=== PATIENT | male | born 2000 | race Caucasian/White ===

== ENCOUNTER 2021-04-04 21:27 | Emergency (ER) | payer OTHER, MEDICAID, SELFPAY ==
[2021-04-04 21:27] VITALS: BP 107/64; PULSE 77; RESP 15; TEMP 36.6; O2SAT 95; BMI 20.5
--- NOTE | 2021-04-04 21:56 | EDS_ITS ---
HPI History of Present Illness Chief Complaint: Male Pain/Injury Informant: patient Pain Onset: Month(s) (2-3) Context: Gradual Onset Timing: Intermittent and Lasts (10 min or so) Current Severity: Mild Maximum Severity: Severe Worsened by: nothing in particular Relieved by: nothing Penile Discharge Genital Discharge Amount: None Related History Sexually: Active and Single Partner (x 2 yrs) Unprotected Sex: Yes STD: No Narrative Narrative: Patient has been having episodic discomfort in his right testicle for the past couple months along with right upper scrotal swelling. Similar episode tonight without obvious trigger, a little worse than before. Radiates up into his groin/right lower quadrant area. Occasional nausea no vomiting. No fevers or chills. No urinary symptoms. No hematuria. No urethral discharge. No known history of STDs or suspicion for 1. Patient denies any injury that he knows of. Recent Illness/Hospitalization: No PFSH PFSH no medical history Home Medications doxycycline monohydrate 100 mg PO BID #14 capsule 04/04/21 [Rx Last Taken Unknown] Allergy/AdvReac Type Severity Reaction Status Date / Time No Known Allergies Allergy Verified 04/04/21 21:29 ROS ROS ED Constitutional Constitutional ED: Denies chills or fever(s) Eyes Eyes: Denies change in vision or diplopia ENT ENT ED: Denies rhinorrhea or sore throat Cardiovascular Cardiovascular: Denies chest pain or palpitations Respiratory/Chest Respiratory/Chest: Denies cough or dyspnea Gastrointestinal Gastrointestinal: Reports nausea; Denies abdominal pain, diarrhea or vomiting Genitourinary Genitourinary ED: Reports scrotal pain; Denies dysuria, hematuria or testicular swelling Musculoskeletal Musculoskeletal: Denies back pain or neck pain Integumentary Denies abscess or rash Neurologic Neurologic: Denies headache(s), paresthesias or weakness Psychiatric Psychiatric: Denies anxiety or suicidal thoughts EXAM Physical Exam Const Vital Signs: 04/04/21 21:27 Temperature 97.9 F Temperature Source Temporal Pulse Rate 77 Respiratory Rate 15 Blood Pressure 107/64 Blood Pressure Mean 78 Pulse Ox 95 Oxygen Delivery Method Room Air Positive well nourished and well developed General Appearance ED: well developed and NAD HEENT Reports moist mucous membranes normocephalic and atraumatic Eyes PERRL and EOMs intact bilaterally Neck full ROM and supple Resp normal respiratory effort GI non-tender and non-distended Auscultation: normoactive bowel sounds Palpation: soft Penis: normal penis and circumcised Meatus: meatus normal Scrotum: testes descended bilaterally and cremasteric reflex present Testes: testicular lie normal and other No erythema or other skin abnormalities in the scrotum. No inguinal lymphadenopathy. No hernias. Examined while standing. ; Negative for enlarged testicle(s), testicular swelling, testicular tenderness, blue dot sign or high-riding testicle Epididymis: Right: Tender (mildly. no other palpable abn, mass. no bag of worms palpable.) Back/Spine no CVA tenderness General Back: other FROM Extremity normal to inspection General Extremety ED: Negative for edema, pulses abnormal or tenderness General Extremity: Negative for edema or pulses abnormal Neuro oriented x3, CN's II-XII intact bilaterally and no sensory deficits noted Sensorium / Orientation: awake and alert Motor Exam: strength 5/5 throughout Skin no rashes or lesions noted and no wounds MDM MDM MDM Narrative Medical decision making narrative: Based on exam most likely diagnosis is epididymitis. Patient states he really does not want to undergo testing right now if possible, but he is amenable to providing a urine specimen for GC and chlamydia. We will place him on a week of doxycycline, and if it returns po sitive for gonorrhea he should return, and if he does not get better with antibiotics he is to follow-up or return. He is comfortable with that plan and prefers to treat empirically like this. Discharge Plan Triage Chief Complaint: Male Pain/Injury ED Provider: Obed Dudley Dx/Rx/DC Orders Clinical Impression: Epididymitis, right Instructions: ED Epididymitis Prescriptions: New doxycycline monohydrate 100 MG capsule 100 mg PO BID Qty: 14 RF: 0 Primary Care Provider: Javier Parisi Referrals: Javier Parisi MD [Primary Care Provider] - 1 Week if not improving Disposition Disposition: Home, Self Care
[2021-04-04 22:25] VITALS: RESP 18
[2021-04-07 03:06] LABS: Chlamydia By Nucleic Acid AMP Negative (Negative)
[2021-04-07 07:20] LABS: Gonococcus By Nucleic Acid AMP Negative (Negative)
== END 2021-04-04 22:29 | disposition home or self-care (01) ==
LOC: ED 22:07
PROVIDERS: Emergency Provider Emergency Medicine; PCP Pediatrics
DX: N45.1 Epididymitis (principal)
CPT/HCPCS: 87491; 87591; 99282

== ENCOUNTER 2022-05-21 15:59 | Emergency (ER) | payer OTHER, MEDICAID, SELFPAY ==
[2022-05-21 15:59] VITALS: BP 139/84; PULSE 76; RESP 16; TEMP 36.2; O2SAT 98; BMI 21.7
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
--- NOTE | 2022-05-21 16:15 | CT_ITS ---
STUDY: CT BRAIN WITHOUT CONTRAST REASON FOR EXAM: Male, 21 years old. Trauma RADIATION DOSAGE (If Supplied By Facility): CTDIvol = ( 44.99 ) mGy, DLP = ( 796.11 ) mGycm TECHNIQUE: Transaxial CT imaging of the brain was performed without administration of intravenous contrast material. Individualized dose optimization techniques were used for this CT. COMPARISON: No relevant priors. FINDINGS: Normal soft tissue structures. Normal calvarium. Normal size ventricles and extra-axial spaces for the patient''s age. Normal white matter tracts of the cerebral hemispheres. Normal basal ganglia and thalami. Normal brainstem. Normal cerebellum. There is no intracranial hemorrhage. There are no findings of an acute ischemic infarction. Normal visualized paranasal sinuses. CT/Brain/Head without Contrast IMPRESSION: Normal unenhanced CT scan of the brain. Electronically Signed: Praveen Walters MD at 16:28 EDT ,
== END 2022-05-21 17:22 | disposition home or self-care (01) ==
PROVIDERS: Emergency Provider Emergency Medicine; PCP Pediatrics; Visit Provider Emergency Medicine
DX: S06.0X0A Concussion without loss of consciousness, initial encounter (principal); S00.81XA Abrasion of other part of head, initial encounter; F17.290 Nicotine dependence, other tobacco product, uncomplicated; X58.XXXA Exposure to other specified factors, initial encounter
CPT/HCPCS: 12011; 70450; 99282